=== PATIENT | female | born 2000 | race Caucasian/White ===

== ENCOUNTER 2019-04-07 06:57 | Emergency (ER) | payer SELFPAY | END 2019-04-07 07:10 | disposition left against medical advice (07) | LOC: JD.ED 06:57 | DX: Z53.21 Procedure and treatment not carried out due to patient leaving prior to being seen by health care provider (principal) | CPT/HCPCS: 99282 ==

== ENCOUNTER 2019-04-07 11:04 | Inpatient (IN) | payer BC ==
[2019-04-07] MEDS ORDERED: Ondansetron 4 MG/2 ML SDV IVPUSH ONE (11:09)
[2019-04-07] MEDS ORDERED: Sodium Chloride 0.9% 10 ML Syringe FLUSH PRN (11:09)
[2019-04-07] MEDS ORDERED: Sodium Chloride 0.9% 1,000 ML IV SCH ×2 (11:15→12:30)
[2019-04-07] MEDS ORDERED: Sodium Chloride 0.9% 1,000 ML ONE (11:26)
[2019-04-07] MEDS ORDERED: Potassium Chloride 10 MEQ in Premix Bag 1 BAG IV SCH (12:15)
--- NOTE | 2019-04-07 12:18 | EDM.PDOCBH ---
ED HPI GENERAL MEDICAL PROBLEM - General Chief Complaint: Drug or Alcohol Abuse Stated Complaint: [facility] Time Seen by Provider: 04/07/19 11:09 Source of Information: Reports: Patient, EMS, Family History Limitations: Reports: Altered Mental Status - History of Present Illness INITIAL COMMENTS - FREE TEXT/NARRATIVE: The patient presents by [facility] for an overdose. She is sleepy but she will talk. She admits to taking hydroxyzine, respiridone and clonidine this morning about 5:30am. She has tried to overdose in the past. She has a history of depression. Her mom, nitish and a friend arrived and clarified some of her story. She has overdosed a few times. She was recently hospitalized in [place] for suicidal ideation. She checked herself in. She told a friend she took some meds last night. She would not go to the hospital. She then talked her into it this morning. She dropped her off at the ER. We did not bring her back right away because were were busy. She left and walked to her mother's house where she ingested more pills. She was found unresponsive but when EMS got there she would respond to painful stimuli and she will talk to me. She did not drink any alcohol. She feels nauseated. She did vomit at the house and EMS said there was no pill fragments. Onset: Sudden Duration: Hour(s): Severity: Moderate Improves with: Reports: None Worsens with: Reports: None Associated Symptoms: Reports: Nausea/Vomiting. Denies: Chest Pain, Cough, Fever /Chills, Headaches, Shortness of Breath - Related Data Allergies Allergy/AdvReac Type Severity Reaction Status Date / Time lidocaine Allergy Hallucinati Verified 11/06/17 22:06 ons promethazine HCl Allergy Anaphylactic Verified 11/06/17 22:06 [From Phenergan] Shock Home Meds: Home Meds Sertraline [Zoloft] 200 mg PO DAILY 07/03/15 [History] lamoTRIgine [Lamotrigine] 100 mg PO BEDTIME 07/03/15 [History] . [Unable to Verify Home Med List] 08/05/15 [History] Past Medical History - Past Health History Medical/Surgical History: Denies Medical/Surgical History Cardiovascular History: Reports: Syncope, Other (See Below) Other Cardiovascular History: Othrostatic hypotension Neurological History: Reports: Concussion Psychiatric History: Reports: Depression - Past Surgical History Female Surgical History: Reports: Other (See Below) Musculoskeletal Surgical History: Reports: Other (See Below) Other Musculoskeletal Surgeries/Procedures:: Foot surgery Social & Family History - Family History Family Medical History: Unobtainable : Reports: Diabetic Nephropathy Psychiatric: Reports: Depression - Tobacco Use Smoking Status *Q: Current Every Day Smoker Years of Tobacco use: 5 Packs/Tins Daily: 1 - Caffeine Use Caffeine Use: Reports: Coffee, Energy Drinks, Soda - Recreational Drug Use Recreational Drug Use: Yes Recreational Drug Type: Reports: Marijuana/Hashish - Living Situation & Occupation Living situation: Reports: Single, with Significant Other (Boyfriend) 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 Denies: Abdominal Pain : Reports: No Symptoms Musculoskeletal: Reports: No Symptoms Skin: Reports: No Symptoms ED EXAM, BEHAVIORAL HEALTH - Physical Exam Exam: See Below Exam Limited By: Altered Mental Status General Appearance: Other (Sleepy but she will talk after painfull stimuli) Eye Exam: Bilateral Eye: EOMI, PERRL Ears: Normal External Exam Nose: Normal Inspection Head: Atraumatic Neck: Normal Inspection Respiratory/Chest: No Respiratory Distress, Lungs Clear, Normal Breath Sounds Cardiovascular: Regular Rate, Rhythm, No Edema, No Murmur GI/Abdominal: Soft, Non-Tender, No Organomegaly, No Mass Neurological: No Motor/Sensory Deficits, Other (Sleepy but she will talk when stimulated) EKG INTERPRETATION EKG Date: 04/07/19 Time: 11:09 Rhythm: NSR Rate (Beats/Min): 73 [place]: Normal P-Wave: Present QRS: Normal ST-T: Normal QT: Prolonged EKG Interpretation Comments: Q waves in the inferior leads COURSE, BEHAVIORAL HEALTH COMP - Course Vital Signs: Last Vital Signs Temp 95.6 F 04/07/19 11:10 Pulse 78 04/07/19 11:10 Resp 14 04/07/19 11:10 BP 94/53 L 04/07/19 11:10 Pulse Ox 97 04/07/19 11:10 Orders, Labs, Meds: Active Orders 24 hr Category Date Time Status Cardiac Monitoring [RC] . DIRECTED Care 04/07/19 11:11 Active Peripheral IV Care [RC] . DIRECTED Care 04/07/19 11:11 Active Magnesium Sulfate/D5W [Magnesium Sulfate in D5W 100 Med 04/07/19 12:16 Active Premix] 1 gm Premix Bag 1 bag IV ONETIME Potassium Chloride [KCl 10 MEQ in Water 100 ML] 10 meq Med 04/07/19 12:15 Active Premix Bag 1 bag IV ASDIRECTED Sodium Chloride 0.9% [Normal Saline] 1,000 ml Med 04/07/19 11:15 Active IV .BOLUS Sodium Chloride 0.9% [Normal Saline] 1,000 ml Med 04/07/19 12:30 Active IV ASDIRECTED Sodium Chloride 0.9% [Saline Flush] Med 04/07/19 11:09 Active 10 ml FLUSH ASDIRECTED PRN ED Antiemetic Medication Reflex [OM.PC] Stat Oth 04/07/19 11:11 Ordered Peripheral IV Insertion Adult [OM.PC] Stat Oth 04/07/19 11:09 Ordered Medication Orders Sodium Chloride (Normal Saline) 1,000 mls @ 1,000 mls/hr IV .BOLUS DENISSE Last Admin: 04/07/19 11:18 Dose: 1,000 mls/hr Potassium Chloride 10 meq/ (Premix) 100 mls @ 100 mls/hr IV ASDIRECTED DENISSE Magnesium Sulfate/Dextrose 1 (gm/ Premix) 100 mls @ 100 mls/hr IV ONETIME ONE Stop: 04/07/19 13:15 Sodium Chloride (Normal Saline) 1,000 mls @ 150 mls/hr IV ASDIRECTED DENISSE Sodium Chloride (Saline Flush) 10 ml FLUSH ASDIRECTED PRN PRN Reason: Keep Vein Open Last Admin: 04/07/19 11:18 Dose: 10 ml Laboratory Tests 04/07/19 04/07/19 04/07/19 Range/Units 11:11 11:11 11:11 WBC 9.05 (3.98-10.04) K/mm3 RBC 4.80 (3.98-5.22) M/mm3 Hgb 13.4 (11.2-15.7) gm/dl Hct 40.9 (34.1-44.9) % MCV 85.2 D (79.4-94.8) fl MCH 27.9 (25.6-32.2) pg MCHC 32.8 (32.2-35.5) g/dl RDW Std Deviation 40.1 (36.4-46.3) fL Plt Count 272 (182-369) K/mm3 MPV 9.4 (9.4-12.3) fl Neut % (Auto) 60.8 (34.0-71.1) % Lymph % (Auto) 29.1 (19.3-51.7) % [place] % (Auto) 8.2 (4.7-12.5) % Eos % (Auto) 1.2 (0.7-5.8) Baso % (Auto) 0.3 (0.1-1.2) % Neut # (Auto) 5.50 (1.56-6.13) K/mm3 Lymph # (Auto) 2.63 (1.18-3.74) K/mm3 [place] # (Auto) 0.74 H (0.24-0.36) K/mm3 Eos # (Auto) 0.11 (0.04-0.36) K/mm3 Baso # (Auto) 0.03 (0.01-0.08) K/mm3 Sodium 139 (136-145) mEq/L Potassium 2.6 L (3.5-5.1) mEq/L Chloride 105 (98-107) mEq/L Carbon Dioxide 23 (21-32) mEq/L Anion Gap 13.6 (5-15) BUN 8 (7-18) mg/dL Creatinine 0.7 (0.55-1.02) mg/dL Est Cr Clr Drug Dosing TNP Estimated GFR (MDRD) > 60 (>60) mL/min BUN/Creatinine Ratio 11.4 L (14-18) Glucose 152 H (74-106) mg/dL Calcium 8.1 L (8.5-10.1) mg/dL Magnesium 1.5 L (1.8-2.4) mg/dl Total Bilirubin 0.4 (0.2-1.0) mg/dL AST 14 L (15-37) U/L ALT 25 (14-59) U/L Alkaline Phosphatase 55 (46-116) U/L CK-MB (CK-2) (0-3.6) ng/ml Troponin I < 0.017 (0.00-0.056) ng/mL Total Protein 6.6 (6.4-8.2) g/dl Albumin 3.5 (3.4-5.0) g/dl Globulin 3.1 gm/dL Albumin/Globulin Ratio 1.1 (1-2) HCG, Qual Negative (NEGATIVE) Salicylates (2.8-20) mg/dL Urine Opiates Screen (TPWDMO=544) Ur Buprenorphine Scrn (CUTOFF=10) Ur Oxycodone Screen (JFM2ZI=855) Urine Methadone Screen (MRNJOW=738) Ur Propoxyphene Screen (UAWMFU=105) Acetaminophen (10-30) ug/mL Ur Barbiturates Screen (EKAYZU=494) Ur Tricyclics Screen (ACNZFF=756) Ur Phencyclidine Scrn (CUTOFF=25) Ur Amphetamine Screen (WALJKS=777) U Methamphetamines Scrn (EQSPZR=355) U Benzodiazepines Scrn (HLHRNJ=751) U Cocaine Metab Screen (GDYLBH=069) U Marijuana (THC) Screen (CUTOFF=50) Ethyl Alcohol 0.00 (0.00) gm% 04/07/19 04/07/19 04/07/19 Range/Units 11:11 11:11 11:11 WBC (3.98-10.04) K/mm3 RBC (3.98-5.22) M/mm3 Hgb (11.2-15.7) gm/dl Hct (34.1-44.9) % MCV (79.4-94.8) fl MCH (25.6-32.2) pg MCHC (32.2-35.5) g/dl RDW Std Deviation (36.4-46.3) fL Plt Count (182-369) K/mm3 MPV (9.4-12.3) fl Neut % (Auto) (34.0-71.1) % Lymph % (Auto) (19.3-51.7) % [place] % (Auto) (4.7-12.5) % Eos % (Auto) (0.7-5.8) Baso % (Auto) (0.1-1.2) % Neut # (Auto) (1.56-6.13) K/mm3 Lymph # (Auto) (1.18-3.74) K/mm3 [place] # (Auto) (0.24-0.36) K/mm3 Eos # (Auto) (0.04-0.36) K/mm3 Baso # (Auto) (0.01-0.08) K/mm3 Sodium (136-145) mEq/L Potassium (3.5-5.1) mEq/L Chloride (98-107) mEq/L Carbon Dioxide (21-32) mEq/L Anion Gap (5-15) BUN (7-18) mg/dL Creatinine (0.55-1.02) mg/dL Est Cr Clr Drug Dosing Estimated GFR (MDRD) (>60) mL/min BUN/Creatinine Ratio (14-18) Glucose (74-106) mg/dL Calcium (8.5-10.1) mg/dL Magnesium (1.8-2.4) mg/dl Total Bilirubin (0.2-1.0) mg/dL AST (15-37) U/L ALT (14-59) U/L Alkaline Phosphatase (46-116) U/L CK-MB (CK-2) 1.9 (0-3.6) ng/ml Troponin I (0.00-0.056) ng/mL Total Protein (6.4-8.2) g/dl Albumin (3.4-5.0) g/dl Globulin gm/dL Albumin/Globulin Ratio (1-2) HCG, Qual (NEGATIVE) Salicylates 1.4 L (2.8-20) mg/dL Urine Opiates Screen (VPTOEZ=293) Ur Buprenorphine Scrn (CUTOFF=10) Ur Oxycodone Screen (FZG0UG=446) Urine Methadone Screen (CLYCWM=116) Ur Propoxyphene Screen (OUYJIS=347) Acetaminophen 0 L (10-30) ug/mL Ur Barbiturates Screen (AVDWLB=217) Ur Tricyclics Screen (RSPFJM=608) Ur Phencyclidine Scrn (CUTOFF=25) Ur Amphetamine Screen (HAXCSR=776) U Methamphetamines Scrn (PBKDDJ=050) U Benzodiazepines Scrn (EWPEJD=181) U Cocaine Metab Screen (RRTXZN=160) U Marijuana (THC) Screen (CUTOFF=50) Ethyl Alcohol (0.00) gm% 04/07/19 Range/Units 11:38 WBC (3.98-10.04) K/mm3 RBC (3.98-5.22) M/mm3 Hgb (11.2-15.7) gm/dl Hct (34.1-44.9) % MCV (79.4-94.8) fl MCH (25.6-32.2) pg MCHC (32.2-35.5) g/dl RDW Std Deviation (36.4-46.3) fL Plt Count (182-369) K/mm3 MPV (9.4-12.3) fl Neut % (Auto) (34.0-71.1) % Lymph % (Auto) (19.3-51.7) % [place] % (Auto) (4.7-12.5) % Eos % (Auto) (0.7-5.8) Baso % (Auto) (0.1-1.2) % Neut # (Auto) (1.56-6.13) K/mm3 Lymph # (Auto) (1.18-3.74) K/mm3 [place] # (Auto) (0.24-0.36) K/mm3 Eos # (Auto) (0.04-0.36) K/mm3 Baso # (Auto) (0.01-0.08) K/mm3 Sodium (136-145) mEq/L Potassium (3.5-5.1) mEq/L Chloride (98-107) mEq/L Carbon Dioxide (21-32) mEq/L Anion Gap (5-15) BUN (7-18) mg/dL Creatinine (0.55-1.02) mg/dL Est Cr Clr Drug Dosing Estimated GFR (MDRD) (>60) mL/min BUN/Creatinine Ratio (14-18) Glucose (74-106) mg/dL Calcium (8.5-10.1) mg/dL Magnesium (1.8-2.4) mg/dl Total Bilirubin (0.2-1.0) mg/dL AST (15-37) U/L ALT (14-59) U/L Alkaline Phosphatase (46-116) U/L CK-MB (CK-2) (0-3.6) ng/ml Troponin I (0.00-0.056) ng/mL Total Protein (6.4-8.2) g/dl Albumin (3.4-5.0) g/dl Globulin gm/dL Albumin/Globulin Ratio (1-2) HCG, Qual (NEGATIVE) Salicylates (2.8-20) mg/dL Urine Opiates Screen Negative (DYDIIR=955) Ur Buprenorphine Scrn Negative (CUTOFF=10) Ur Oxycodone Screen Negative (QDD7FC=607) Urine Methadone Screen Negative (TEQVMT=245) Ur Propoxyphene Screen Negative (RHKZJG=248) Acetaminophen (10-30) ug/mL Ur Barbiturates Screen Negative (NADMNB=391) Ur Tricyclics Screen Negative (FOSGGC=536) Ur Phencyclidine Scrn Negative (CUTOFF=25) Ur Amphetamine Screen Negative (MEVQZQ=031) U Methamphetamines Scrn Negative (MFVXDI=371) U Benzodiazepines Scrn Negative (STAOJF=939) U Cocaine Metab Screen Negative (JPFBZB=141) U Marijuana (THC) Screen Presumptive positive H (CUTOFF=50) Ethyl Alcohol (0.00) gm% Medications Generic Name Dose Route Start Last Admin Trade Name Freq PRN Reason Stop Dose Admin Sodium Chloride 1,000 mls @ 1,000 mls/hr 04/07/19 11:15 04/07/19 11:18 Normal Saline IV 1,000 mls/hr .BOLUS DENISSE Administration Potassium Chloride 10 meq/ 100 mls @ 100 mls/hr 04/07/19 12:15 Premix IV ASDIRECTED DENISSE Magnesium Sulfate/Dextrose 1 100 mls @ 100 mls/hr 04/07/19 12:16 gm/ Premix IV 04/07/19 13:15 ONETIME ONE Sodium Chloride 1,000 mls @ 150 mls/hr 04/07/19 12:30 Normal Saline IV ASDIRECTED DENISSE Sodium Chloride 10 ml 04/07/19 11:09 04/07/19 11:18 Saline Flush FLUSH 10 ml ASDIRECTED PRN Administration Keep Vein Open Discontinued Medications Generic Name Dose Route Start Last Admin Trade Name Freq PRN Reason Stop Dose Admin Sodium Chloride Confirm 04/07/19 11:26 Normal Saline Administered 04/07/19 11:27 Dose 1,000 mls @ as directed .ROUTE .STK-MED ONE Ondansetron HCl 4 mg 04/07/19 11:09 04/07/19 11:18 Zofran IVPUSH 04/07/19 11:10 4 mg ONETIME ONE Administration Re-Assessment/Re-Exam: I ordered an IV NS 1L bolus, labs, UDS and an EKG. Her EKG shows a NSR with borderline QT prolongation. Her CBC looks good. Her K is low at 2.6. Her glucose was elevated at 152. Her troponin is negative. Her HCG is negative. Her UDS is positive for marijuana. Her ETOH is 0. Her salicylates are negative. Her acetaminophen is negative. Her BP was low so she did get a NS bolus. That did help but later her BP dropped again so I ordered LR 1L bolus. I did call poison control and they recommended admission and keeping her BP up with fluids and watch for QRS prolongation. I called Dr Resendiz and she agreed to the admission. Departure - Departure Time of Disposition: 12:40 Disposition: Admitted As Inpatient 65 Condition: Serious Clinical Impression: Suicidal ideation, Hypokalemia, Hypomagnesemia Drug overdose Qualifiers: Encounter type: initial encounter Injury intent: intentional self-harm Qualified Code(s): T50.902A - Poisoning by unspecified drugs, medicaments and biological substances, intentional self-harm, initial encounter Depression Qualifiers: Depression Type: other depression Qualified Code(s): F32.89 - Other specified depressive episodes Hypotension Qualifiers: Hypotension type: other hypotension type Qualified Code(s): I95.89 - Other hypotension - Discharge Information Referrals: PCP,None [Primary Care Provider] - Sepsis Event Note - Evaluation Sepsis Screening Result: No Definite Risk - Focused Exam Vital Signs: Vital Signs Temp Pulse Resp BP Pulse Ox 04/07/19 11:10 95.6 F 78 14 94/53 L 97 Date Exam was Performed: 04/07/19 Time Exam was Performed: 12:29 - My Orders Last 24 Hours: My Active Orders 04/07/19 11:09 Sodium Chloride 0.9% [Saline Flush] 10 ml FLUSH ASDIRECTED PRN Peripheral IV Insertion Adult [OM.PC] Stat 04/07/19 11:11 Cardiac Monitoring [RC] . DIRECTED Peripheral IV Care [RC] . DIRECTED ED Antiemetic Medication Reflex [OM.PC] Stat 04/07/19 11:15 Sodium Chloride 0.9% [Normal Saline] 1,000 ml IV .BOLUS 04/07/19 12:15 Potassium Chloride [KCl 10 MEQ in Water 100 ML] 10 meq Premix Bag 1 bag IV ASDIRECTED 04/07/19 12:16 Magnesium Sulfate/D5W [Magnesium Sulfate in D5W 100 Premix] 1 gm Premix Bag 1 bag IV ONETIME 04/07/19 12:30 Sodium Chloride 0.9% [Normal Saline] 1,000 ml IV ASDIRECTED - Assessment/Plan Last 24 Hours: My Active Orders 04/07/19 11:09 Sodium Chloride 0.9% [Saline Flush] 10 ml FLUSH ASDIRECTED PRN Peripheral IV Insertion Adult [OM.PC] Stat 04/07/19 11:11 Cardiac Monitoring [RC] . DIRECTED Peripheral IV Care [RC] . DIRECTED ED Antiemetic Medication Reflex [OM.PC] Stat 04/07/19 11:15 Sodium Chloride 0.9% [Normal Saline] 1,000 ml IV .BOLUS 04/07/19 12:15 Potassium Chloride [KCl 10 MEQ in Water 100 ML] 10 meq Premix Bag 1 bag IV ASDIRECTED 04/07/19 12:16 Magnesium Sulfate/D5W [Magnesium Sulfate in D5W 100 Premix] 1 gm Premix Bag 1 bag IV ONETIME 04/07/19 12:30 Sodium Chloride 0.9% [Normal Saline] 1,000 ml IV ASDIRECTED
[2019-04-07] MEDS ORDERED: Lactated Ringers 1,000 ML IV ONE (12:36)
[2019-04-07] MEDS ORDERED: Lactated Ringers 1,000 ML IV SCH (12:45)
[2019-04-07] MEDS ORDERED: LORazepam 2 MG/ML SDV IVPUSH PRN (12:59)
--- NOTE | 2019-04-07 13:22 | PCM.HP.2 ---
H&P History of Present Illness - General Date of Service: 04/07/19 Admit Problem/Dx: Admission Diagnosis/Problem Admission Diagnosis/Problem Drug overdose - suicide - History of Present Illness Initial Comments - Free Text/Narative: This is a 18 year old female with past medical history of depression and anxiety who comes to the ED brought by family members for a drug overdose. As per patient's family last night she took Risperdal, clonidine and hydroxyzine and afterwards told her fiancee she had taken the pills, she did not voice the reason why she took them. At that time they tried to convince patient to come in to be evaluated but she refused, instead she went out for a walk and came back a couple of hours later and went to bed. She came in to the ED this morning to be evaluated but left prior to being seen and [facility] and wound up in her apartment. Once she was there she walked upstairs and her fiancee heard her fall on the floor after which EMS was called and she was brought in to the ED. - Related Data Allergies/Adverse Reactions: Allergies Allergy/AdvReac Type Severity Reaction Status Date / Time lidocaine Allergy Hallucinati Verified 11/06/17 22:06 ons promethazine HCl Allergy Anaphylactic Verified 11/06/17 22:06 [From Phenergan] Shock Home Medications: Home Meds Sertraline [Zoloft] 200 mg PO DAILY 07/03/15 [History] lamoTRIgine [Lamotrigine] 100 mg PO BEDTIME 07/03/15 [History] . [Unable to Verify Home Med List] 08/05/15 [History] Past Medical History - Past Health History Medical/Surgical History: Denies Medical/Surgical History Cardiovascular History: Reports: Syncope, Other (See Below) Other Cardiovascular History: Othrostatic hypotension Neurological History: Reports: Concussion Psychiatric History: Reports: Depression - Past Surgical History Female Surgical History: Reports: Other (See Below) Musculoskeletal Surgical History: Reports: Other (See Below) Other Musculoskeletal Surgeries/Procedures:: Foot surgery Social & Family History - Family History Family Medical History: Unobtainable : Reports: Diabetic Nephropathy Psychiatric: Reports: Depression - Tobacco Use Smoking Status *Q: Current Every Day Smoker Years of Tobacco use: 5 Packs/Tins Daily: 1 - Caffeine Use Caffeine Use: Reports: Coffee, Energy Drinks, Soda - Recreational Drug Use Recreational Drug Use: Yes Recreational Drug Type: Reports: Marijuana/Hashish - Living Situation & Occupation Living situation: Reports: Single, with Significant Other (Boyfriend) 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[employer]) H&P Review of Systems - Review of Systems: Review Of Systems: Unable To Obtain Reason Not Obtained: Patient is obtunded Exam - Exam Exam: See Below - Vital Signs Vital Signs: Last Vital Signs Temp 95.6 F 04/07/19 11:10 Pulse 78 04/07/19 11:10 Resp 14 04/07/19 11:10 BP 94/53 L 04/07/19 11:10 Pulse Ox 97 04/07/19 11:10 - Exam Quality Assessment: Supplemental Oxygen General: Obtunded HEENT: EACs Clear, EOMI, Hearing Intact, Mucosa Moist & [place], Other ( erythematous conjunctiva) Neck: Supple, Trachea Midline, +2 Carotid Pulse wo Bruit Lungs: Clear to Auscultation, Decreased Breath Sounds. No: Crackles, Rales, Rhonchi, Wheezing Cardiovascular: Regular Rate, Regular Rhythm. No: Systolic Murmur, Diastolic Murmur, Rubs, Gallop/S3, Gallop/S4 GI/Abdominal Exam: Normal Bowel Sounds, Soft, Non-Tender, No Organomegaly, No Distention Extremities: Normal Inspection, Normal Range of Motion, Non-Tender, No Pedal Edema, Normal Capillary Refill Skin: Warm - Patient Data Result Diagrams: 04/07/19 11:11 04/07/19 11:11 Sepsis Event Note - Evaluation Sepsis Screening Result: No Definite Risk - Focused Exam Vital Signs: Vital Signs Temp Pulse Resp BP Pulse Ox 04/07/19 11:10 95.6 F 78 14 94/53 L 97 Date Exam was Performed: 04/07/19 Time Exam was Performed: 13:09 - Problem List (1) Major depressive disorder SNOMED Code(s): 685014769 ICD Code: F32.9 - MAJOR DEPRESSIVE DISORDER, SINGLE EPISODE, UNSPECIFIED Status: Acute Current Visit: Yes (2) Anxiety SNOMED Code(s): 65810399 ICD Code: F41.9 - ANXIETY DISORDER, UNSPECIFIED Status: Acute Current Visit: Yes (3) Drug overdose SNOMED Code(s): 02771460 ICD Code: T50.901A - POISONING BY UNSP DRUG/MEDS/BIOL SUBST, ACCIDENTAL, INIT Status: Acute Current Visit: Yes Qualifiers: Encounter type: initial encounter Injury intent: intentional self-harm Qualified Code(s): T50.902A - Poisoning by unspecified drugs, medicaments and biological substances, intentional self-harm, initial encounter (4) Hypokalemia SNOMED Code(s): 69759695 ICD Code: E87.6 - HYPOKALEMIA Status: Acute Current Visit: Yes (5) Hypomagnesemia SNOMED Code(s): 233635055 ICD Code: E83.42 - HYPOMAGNESEMIA Status: Acute Current Visit: Yes (6) Hypotension SNOMED Code(s): 45908167 ICD Code: I95.9 - HYPOTENSION, UNSPECIFIED Status: Acute Current Visit: Yes Qualifiers: Hypotension type: other hypotension type Qualified Code(s): I95.89 - Other hypotension (7) Suicidal ideation SNOMED Code(s): 1291921 ICD Code: R45.851 - SUICIDAL IDEATIONS Status: Acute Current Visit: Yes Problem List Initiated/Reviewed/Updated: Yes Assessment/Plan Comment:: Drug overdose Hypotension Previous suicide attempts Major depressive disorder Anxiety Hypomagnesemia/Hypokalemia Suicidal ideation With Risperidone, Clonazepam and Hydroxyzine Poison control case # Hypotension in the ED, requiring multiple fluid boluses 4 previous suicide attempts 5 prior psychiatric unit admissions, including 8 month admission to [facility] in 2016, discharged 02/2016 Recent self admission to [facility] for suicidal ideation, 1 month ago Apparent trigger was a miscarriage 2 months ago PLAN - LR at 250ml/hr - Close monitorization of urine output - Continues cardiac monitoring - If refractory then will place central line and start vasopressors - Follow up with poison control Alcohol abuse disorder Marijuana abuse disorder Tobacco user Daily drinker, 1-2 cocktails Last drink was Wed-Jeannie of last week Smokes 1ppd since age 14 PLAN - CIWA protocol - Thiamine daily - Banana Bag - Nicotine patch - Smoking cessation counseling PROPHYLAXIS DVT- Compression stockings GI- not indicated CODE STATUS: FULL CODE DISPOSITION: Patient will be admitted to the ICU for close monitorization. 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 - Mortality Measure Prognosis:: Good
[2019-04-07 13:27] LABS: HEMOGLOBIN A1C 5.1 % (4.50-6.20)
[2019-04-07] MEDS: Lactated Ringers 1,000 ML IV SCH ×3 (14:10→21:59)
[2019-04-07] MEDS ORDERED: Magnesium Sulfate/Water 4 GM in Premix Bag 1 BAG IV ONE (18:50)
[2019-04-07] MEDS: Potassium Chloride 10 MEQ in Premix Bag 1 BAG IV SCH ×4 (19:01→21:59)
[2019-04-08] MEDS ORDERED: Sodium Chloride 0.9% 10 ML Syringe FLUSH PRN (06:36)
[2019-04-08] MEDS ORDERED: FLU Vacc QS2019-20(6MOS+)/PF 60 MCG/0.5 ML SYRINGE IM ONE (07:30)
[2019-04-08] MEDS ORDERED: Nicotine 21 MG/24 Hr Patch TRDERM SCH (09:00)
[2019-04-08] MEDS ORDERED: Thiamine 100 MG Tab PO SCH (11:00)
[2019-04-08 12:31] VITALS: BP 127/51; PULSE 84
--- NOTE | 2019-04-08 14:27 | PCM.DCSUM1 ---
Discharge Summary - Hospital Course HPI Initial Comments: This is a 18 year old female with past medical history of depression and anxiety who comes to the ED brought by family members for a drug overdose. As per patient's family last night she took Risperdal, clonidine and hydroxyzine and afterwards told her fiancee she had taken the pills, she did not voice the reason why she took them. At that time they tried to convince patient to come in to be evaluated but she refused, instead she went out for a walk and came back a couple of hours later and went to bed. She came in to the ED this morning to be evaluated but left prior to being seen and walked to [facility] and wound up in her apartment. Once she was there she walked upstairs and her fiancee heard her fall on the floor after which EMS was called and she was brought in to the ED. Diagnosis: Stroke: No - Discharge Data Discharge Date: 04/08/19 Discharge Disposition: DC/Tfer to Psych Hosp/Unit [address] Condition: Good - Referral to Home Health Primary Care Physician: PCP None - Discharge Diagnosis/Problem(s) (1) Major depressive disorder SNOMED Code(s): 848725274 ICD Code: F32.9 - MAJOR DEPRESSIVE DISORDER, SINGLE EPISODE, UNSPECIFIED Status: Acute Current Visit: Yes (2) Anxiety SNOMED Code(s): 11180612 ICD Code: F41.9 - ANXIETY DISORDER, UNSPECIFIED Status: Acute Current Visit: Yes (3) Drug overdose SNOMED Code(s): 02120810 ICD Code: T50.901A - POISONING BY UNSP DRUG/MEDS/BIOL SUBST, ACCIDENTAL, INIT Status: Acute Current Visit: Yes Qualifiers: Encounter type: initial encounter Injury intent: intentional self-harm Qualified Code(s): T50.902A - Poisoning by unspecified drugs, medicaments and biological substances, intentional self-harm, initial encounter (4) Hypokalemia SNOMED Code(s): 72560957 ICD Code: E87.6 - HYPOKALEMIA Status: Acute Current Visit: Yes (5) Hypomagnesemia SNOMED Code(s): 389339481 ICD Code: E83.42 - HYPOMAGNESEMIA Status: Acute Current Visit: Yes (6) Hypotension SNOMED Code(s): 73914114 ICD Code: I95.9 - HYPOTENSION, UNSPECIFIED Status: Acute Current Visit: Yes Qualifiers: Hypotension type: other hypotension type Qualified Code(s): I95.89 - Other hypotension (7) Suicidal ideation SNOMED Code(s): 8943179 ICD Code: R45.851 - SUICIDAL IDEATIONS Status: Acute Current Visit: Yes - Patient Summary/Data Consults: Consultations 04/07/19 12:59 Consult to Case Management/District Manager [employer] Service [CONS] Routine 04/07/19 17:21 Consult to Physician [CONS] Routine Hospital Course: Patient came in to the ED brought by EMS for drug overdose Once in ED was found to be hypotensive despite multiple IVF bolus Poison control consulted and recommended overnight monitorization for intoxication Medically stable Hypotension resolved on 04/07 Medically cleared Case discussed with Dr. Lane in [place] Patient will be transferred to inpatient psychiatry - Patient Instructions Diet: Usual Diet as Tolerated Activity: As Tolerated - Discharge Plan *PRESCRIPTION DRUG MONITORING PROGRAM REVIEWED*: No *COPY OF PRESCRIPTION DRUG MONITORING REPORT IN PATIENT ANA ROSA: No Home Medications: Home Meds . [Unable to Verify Home Med List] 08/05/15 [History] Patient Handouts: Steps to Quit Smoking Referrals: PCP,None [Primary Care Provider] - - Discharge Summary/Plan Comment DC Time >30 min.: Yes (120min, coordinating transfer to [facility] in [place]) - General Info Date of Service: 04/08/19 - Review of Systems General: Denies: Fever, Weakness, Fatigue, Malaise, Chills HEENT: Denies: Sinus Congestion, Sore Throat, Rhinitis, Visual Changes Pulmonary: Denies: Shortness of Breath, Pleuritic Chest Pain, Cough, Sputum, Hemoptysis, Wheezing Cardiovascular: Denies: Chest Pain, Palpitations, Dyspnea on Exertion, Orthopnea , PND, Edema, Lightheadedness Gastrointestinal: Denies: Abdominal Pain, Constipation, Decreased Appetite, Diarrhea, Difficulty Swallowing, Nausea, Vomiting Genitourinary: Denies: Dysuria, Frequency, Burning, Pain Musculoskeletal: Denies: Neck Pain, Shoulder Pain, Arm Pain, Hand Pain, Back Pain, Leg Pain, Foot Pain, Joint Pain, Joint Swelling Skin: Denies: Cyanosis, Jaundice, Mottled Neurological: Denies: Confusion, Dizziness, Headache Psychiatric: Reports: Depression, Mood Lability, Anxiety, Agitation. Denies: Confusion - Patient Data Vitals - Most Recent: Last Vital Signs Temp 98.0 F 04/08/19 12:00 Pulse 84 04/08/19 12:00 Resp 16 04/08/19 12:00 BP 127/51 L 04/08/19 12:00 Pulse Ox 98 04/08/19 12:00 Weight - Most Recent: 87.725 kg - Exam General: Reports: Alert, Oriented HEENT: Reports: Pupils Equal, Pupils Reactive, EOMI, Mucous Membr. Moist/[place] Neck: Reports: Supple, Trachea Midline, No JVD, No Thyromegaly, +2 Carotid Pulse wo Bruit. Denies: Lymphadenopathy Lungs: Reports: Clear to Auscultation, Normal Respiratory Effort. Denies: Crackles, Rales, Rhonchi, Rub, Stridor, Wheezing Cardiovascular: Reports: Regular Rate, Regular Rhythm. Denies: Murmurs, Gallops , Rubs GI/Abdominal Exam: Normal Bowel Sounds, Soft, Non-Tender, No Organomegaly, No Distention Back Exam: Reports: Normal Inspection, Full Range of Motion Extremities: Normal Inspection, Normal Range of Motion, Non-Tender, No Pedal Edema, Normal Capillary Refill Neurological: Reports: No New Focal Deficit
--- NOTE | 2019-04-09 15:19 | CONS ---
CONSULTING PHYSICIAN: Raul Zaldivar MD DATE OF CONSULTATION: 04/08/2019 Site where the services are provided is [facility] in [place], [place]. Site where the services are provided from office is in [facility]. Length of service for this 60-minute inpatient telemedicine event is . IDENTIFICATION: The patient is a 18-year-old female who is admitted to the inpatient MICU at [facility] in [place], [place]. She is seen for psychiatric consultation per the request of staff attending, Dr. Resendiz, and her treatment team. CHIEF COMPLAINT: "I was like impulsive and I took a bunch of pills." HISTORY OF PRESENT ILLNESS: The patient is a 18-year-old female who was not feeling good after a fight with her boyfriend and then overdosed on a combination of Benadryl, Klonopin, and Risperdal. She states she has been under a lot of stress and she had also been drinking some wine coolers and some mixed drinks. She states that she had generally been feeling good, but she did have a miscarriage a few months ago and "that has been really hard" on her. She also states that work has been going well. The patient is feeling depressed, "but not all the time." She definitely endorses mood swings, a lot of anxiety, and racing thoughts or ruminations. At this point in time, she is denying that she is suicidal or homicidal. She denies any psychotic, delusional, or paranoid symptoms, but she does again state that she has a lot of depression, anxiety, mood swings and she does feel impulsive at times. MEDICATIONS PRIOR TO ADMISSION: 1. Zoloft. 2. Risperdal. 3. Clonidine. 4. Lamotrigine. ALLERGIES: The patient states she is allergic to Phenergan, which causes pulmonary arrest. PAST MEDICAL HISTORY: The patient is denying. REVIEW OF SYSTEMS: Negative for any acute difficulties or complications currently with her GI, , pulmonary, cardiac, endocrine, blood, immune, skin, musculoskeletal, and nervous systems. FAMILY PSYCHIATRIC AND CD HISTORY: The patient reports sisters have a history of mental health issues. PAST PSYCHIATRIC AND CD HISTORY: The patient reports 2 psychiatric hospitalizations in the past and one chemical dependency treatment in the past. She is a 7-ggxk-vrt-day smoker for the past 4 years. She does report about 5 suicide attempts by overdose in the past. Also reports a history of self-injurious behaviors in her early teens. She does report some restricting behaviors, but denies any bulimic behaviors again when she was younger. She states that she is using marijuana on the orders of "2 blunts to few bolts" a day. She is currently prescribed Risperdal, clonidine, and Lamictal. She sees Dr. Bacon out of [place] for her psychiatric outpatient care. SOCIAL HISTORY: The patient was born in [place], [place]; raised in [place], [place]; [place], [place]; [place], [place]. She is the 4th of 5 siblings having 3 sisters and 1 brother. The patient's parents when the patient was 6 years of age. She stayed with her mother after divorce. Father worked at [employer]. Mother worked at [employer]. The patient's highest level of education is a high school diploma. 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 She has never been . Her fiance works in construction, and she reports 1 miscarriage "a few months back" and notes that she has "been coming through, but it has been hard." The patient denies any prior service or current legal difficulties. She is agnostic, but was raised Adventist. She enjoys playing music, playing the piano, guitar, and ukulele. MENTAL STATUS EXAMINATION: The patient is a 18-year-old soft-spoken white female in no apparent distress. Speech is of regular rate and rhythm. The patient is cognitively oriented. Psychomotor activity is within normal limits. There are no abnormal motor movements or tics observed. Gait is steady. Station is normal. Mood is depressed and anxious. Affect is consistent with stated mood, restricted, but cooperative overall for the purposes of the inpatient consult. The patient is denying any suicidal ideation at this point in time. There is no homicidal ideation. There is no behavioral or stated evidence of acute psychotic, delusional, or paranoid symptoms. Thought processes are significant for some racing thoughts or ruminations. However, there are no acute manic symptoms or loose associations evident. Judgment and insight do appear impaired at this point in time. Motivation for help appears poor to fair. VITALS: 107/63, 77, 16, 98 degrees. IMPRESSION: [place] I: 1. Bipolar affective disease, mixed type, F31.60. 2. Anxiety disorder, not otherwise specified, F41.9. 3. Cannabis dependence, F12.20. 4. Rule out attention deficit hyperactivity disorder. 5. Rule out attention deficit hyperactivity disorder. 6. Rule out major depressive disorder. [place]il[place] II: None. Shil[place] III: No known active problem, except for medical complications from overdose. [place] IV: Severe. [place]il[place] V: 55-60. PLAN: 1. Sobriety. 2. Recommend the patient be transferred to inpatient Psychiatry when medically stable for further psychiatric care and stabilization and medication review. 3. Recommend that social Work or inpatient psychiatric team when patient is transferred. Also, explore need for CD treatment options given the patient's daily cannabis use at this point in time. 4. Patient attempts to leave AMA. Would place hold on the patient for the purposes of transferring to inpatient psychiatry for again further psychiatric stabilization and care. 5. We will continue follow up with the patient on an as-needed basis while she remains on the inpatient MICU. 6. We will follow up with the patient sooner if there are any complications in the interim. 7. Would recommend continuing one-to-one with the patient while she remains on MICU. 8. Crisis plan is in place. CLAUDIA /[id number]
== END 2019-04-08 15:15 | DRG 817 ==
LOC: JD.ED 11:04 → JD.ICU 13:00
PROVIDERS: ADMIT Internal Medicine; ATTEND Internal Medicine
DX: T43.592A Poisoning by other antipsychotics and neuroleptics, intentional self-harm, initial encounter (principal); F31.60 Bipolar disorder, current episode mixed, unspecified; F41.9 Anxiety disorder, unspecified; F12.20 Cannabis dependence, uncomplicated; E87.6 Hypokalemia; E83.42 Hypomagnesemia; I95.89 Other hypotension; F17.210 Nicotine dependence, cigarettes, uncomplicated; F10.10 Alcohol abuse, uncomplicated; Z88.8 Allergy status to other drugs, medicaments and biological substances; Z79.899 Other long term (current) drug therapy
CPT/HCPCS: 36415; 51702; 80053; 80306; 82553; 83036; 83735; 84100; 84484; 84703; 85025; 85027; 93005; 96361; 96365; 96368; 96375; 99285-25; A9270-GY; G0480; J2405; J3475; J3480; J7030; J7120

== ENCOUNTER 2020-04-17 01:59 | Emergency (ER) | payer SELFPAY ==
[2020-04-17 02:19] VITALS: BP 130/78; PULSE 104
[2020-04-17] MEDS ORDERED: Ketorolac 30 MG/ML SDV IVPUSH STA (02:43)
[2020-04-17] MEDS ORDERED: LORazepam 2 MG/ML SDV IVPUSH STA (02:43)
[2020-04-17] MEDS ORDERED: Sodium Chloride 0.9% 1,000 ML IV SCH (02:45)
--- NOTE | 2020-04-17 02:46 | EDM.PDOCBH ---
ED HPI GENERAL MEDICAL PROBLEM - General Chief Complaint: Behavioral/Psych Stated Complaint: ANXIETY/HAVING PROBLEMS COPING Time Seen by Provider: 04/17/20 02:11 Source of Information: Reports: Patient History Limitations: Reports: No Limitations - History of Present Illness INITIAL COMMENTS - FREE TEXT/NARRATIVE: Ms. Zafar is a very pleasant 19-year-old woman with a past psychiatric history that includes depression, anxiety, borderline personality disorder, and an eating disorder, all untreated since approximately May 2019, who now presents the ED with feelings of anxiety and difficulty focusing since approximately 2016. She states that she cries often and feels paranoid. She expressly denies feeling suicidal or homicidal, and states that she has not attempted to harm herself. The patient states that she attempted suicide in March 2019, and was psychiatrically hospitalized at [facility]. She was treated with clonazepam, Abilify, and lamotrigine. She followed up at [facility] in April 2019, and was given an extension of her prescriptions, but discontinued them in May 2019 for financial reasons. She has not returned to [facility] since. The patient also reports having a bad headache tonight. She states that she gets headaches frequently, particularly when her mind is racing, and that this headache is essentially the same as those, except worse in severity. The patient acknowledges smoking marijuana daily. She also drinks alcohol on occasion, and drinks to excess on occasion, and she acknowledges that she was drinking tonight, although she states not excessively. Here in the ED, the patient is found to be mildly tachycardic at 104 bpm, otherwise, she is hemodynamically stable, afebrile, saturating 97% on room air. The patient states that she gets headaches and nausea often, otherwise, the patient denies having a recent fever, chills, sore throat, ear pain, nasal or sinus congestion, cough, dyspnea, chest pain, palpitations, vomiting, constipation, diarrhea, abdominal pain, urinary symptoms, recent weight gain or weight loss, recent bloody bowel movements or black bowel movements, recent joint aches, or rashes. The patient does not have a PCP. Her Psychiatrist is Dr. Mary Sahu. She has not received an influenza vaccine this season, and declined an offer to receive one in the ED. Headache Pain Score (Numeric/FACES): 8 - Related Data Allergies Allergy/AdvReac Type Severity Reaction Status Date / Time promethazine HCl Allergy Anaphylactic Verified 04/17/20 02:19 [From Phenergan] Shock lidocaine AdvReac Hallucinati Verified 04/17/20 02:19 ons Home Meds: Home Meds . 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: Reports: Spontaneous Psychiatric History: Reports: Anxiety, Depression, Eating Disorders, Psych Hospitalization(s), Suicide Attempt, Other (See Below) (Borderline personality disorder) - Past Surgical History Musculoskeletal Surgical History: Reports: Other (See Below) (Right ankle surgery) Social & Family History - Tobacco Use Tobacco Use Status *Q: Current Every Day Tobacco User Years of Tobacco use: 4 Packs/Tins Daily: 1 - Caffeine Use Caffeine Use: Reports: Coffee, Energy Drinks, Soda - Alcohol Use Alcohol Use History: Yes Alcohol Use Frequency: Socially (occasionally to excess) - Recreational Drug Use Recreational Drug Use: Yes Drug Use in Last 12 Months: Yes Recreational Drug Type: Reports: Cocaine (last snorted Jul 2019), Ecstasy (took once in Jun 2019), LSD (Acid) (last took 2016), Marijuana/Hashish (smokes daily) - Living Situation & Occupation Living situation: Reports: Single, Alone 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 ED EXAM, BEHAVIORAL HEALTH - Physical Exam Exam: See Below Exam Limited By: No Limitations General Appearance: Alert, WD/WN, Anxious Eye Exam: Bilateral Eye: EOMI, Normal Inspection Ears: Normal External Exam, Hearing Grossly Normal Nose: Normal Inspection Throat/Mouth: Normal Inspection, Normal Lips, Normal Voice, No Airway Compromise Head: Atraumatic, Normocephalic Neck: Normal Inspection, Full Range of Motion Respiratory/Chest: No Respiratory Distress, Lungs Clear, Normal Breath Sounds, No Accessory Muscle Use Cardiovascular: Normal Peripheral Pulses, Regular Rate, Rhythm, No Edema, No Gallop, No JVD, No Murmur, No Rub GI/Abdominal: Normal Bowel Sounds, Soft, Non-Tender, No Organomegaly, No Distention, No Abnormal Bruit, No Mass Back Exam: Normal Inspection, Full Range of Motion, NT Extremities: Normal Inspection, Normal Range of Motion, Normal Capillary Refill Neurological: Alert, Normal Cognition, No Motor/Sensory Deficits, Oriented x 3 Psychiatric: Tearful (at times), Agitated (somewhat), Flight of Ideas (although able to be redirected), Pressured Speech (somewhat) Skin Exam: Warm, Dry, Intact, Normal color, No rash COURSE, BEHAVIORAL HEALTH COMP - Course Vital Signs: Last Vital Signs Temp 36.3 C 04/17/20 02:10 Pulse 104 H 04/17/20 02:10 Resp 20 04/17/20 02:10 BP 130/78 04/17/20 02:10 Pulse Ox 97 04/17/20 02:10 Orders, Labs, Meds: Active Orders 24 hr Category Date Time Status Sodium Chloride 0.9% [Normal Saline] 1,000 ml Med 04/17/20 02:45 Active IV ASDIRECTED Medication Orders Sodium Chloride (Normal Saline) 1,000 mls @ 250 mls/hr IV ASDIRECTED DENISSE Last Admin: 04/17/20 02:53 Dose: 250 mls/hr Documented by: LIV Medications Generic Name Dose Route Start Last Admin Trade Name Freq PRN Reason Stop Dose Admin Sodium Chloride 1,000 mls @ 250 mls/hr 04/17/20 02:45 04/17/20 02:53 Normal Saline IV 250 mls/hr ASDIRECTED EDNISSE Administration Discontinued Medications Generic Name Dose Route Start Last Admin Trade Name Freq PRN Reason Stop Dose Admin Ketorolac Tromethamine 30 mg 04/17/20 02:43 04/17/20 02:53 Toradol IVPUSH 04/17/20 02:44 30 mg ONETIME STA Administration Lorazepam 1 mg 04/17/20 02:43 04/17/20 02:54 Ativan IVPUSH 04/17/20 02:44 1 mg ONETIME STA Administration Medical Clearance: 04/17/20 02:44 The patient is behaving somewhat manic and is complaining of feeling anxious and unable to focus. She is somewhat tearful. She states that she has been experiencing these symptoms since 2016, although has been off her medications since only May 2019. She is aware that the emergency department cannot prescribe psychiatric medications, and she also is aware that she does not need to be emergently psychiatrically hospitalized, since she is neither suicidal nor homicidal. She is willing to return to Dr. Sahu, but is unhappy about the $800 bill that she was given the last time she was there. She states that she is not even comfortable being here in the ED, knowing that she will get a bill from here, as well, but states that she was hoping that there was something that we can do for her tonight. For tonight's purposes, she will be given an IV with some IV fluid, some IV Ativan to calm her nerves, and IV Toradol to treat her headache. The plan will be to have her stay here and try to get some rest until about 6:30 this morning. 04/17/20 06:40 The patient has been sleeping uneventfully. Catalina KENYON will either have our executive secretary social welfare contact the patient on Monday, or give the patient our executive secretary social welfare phone number. From there, the patient can see if she qualifies for Medicaid or some other service that would help her financially with respect to seeing Dr. Sahu and getting restarted on her psychiatric medications. Departure - Departure Time of Disposition: 06:42 Disposition: Home, Self-Care 01 Condition: Good Clinical Impression: Anxiety - Discharge Information *PRESCRIPTION DRUG MONITORING PROGRAM REVIEWED*: Not Applicable *COPY OF PRESCRIPTION DRUG MONITORING REPORT IN PATIENT ANA ROSA: Not Applicable Referrals: Mary Sahu MD [Ordering Only Provider] - Forms: ED Department Discharge Additional Instructions: You were seen in the emergency room for long-term feelings of anxiety and difficulty focusing in the setting of being off of your psychiatric medications since May, along with having a bad headache. You were treated with IV fluid, an IV pain medicine, and an IV sedative in the ER. As you are already aware, the ER cannot prescribe psychiatric medications. You need to follow-up with the Psychiatrist Dr. Sahu at [facility]. In order to help you financially, you are to contact executive secretary social welfare on 04/20/2020, to see what sort of services you qualify for. If any other problems, please do not hesitate to return to the ER. Sepsis Event Note (ED) - Evaluation Sepsis Screening Result: No Definite Risk - Focused Exam Vital Signs: Vital Signs Temp Pulse Resp BP Pulse Ox 04/17/20 02:10 36.3 C 104 H 20 130/78 97 - My Orders Last 24 Hours: My Active Orders 04/17/20 02:45 Sodium Chloride 0.9% [Normal Saline] 1,000 ml IV ASDIRECTED - Assessment/Plan Last 24 Hours: My Active Orders 04/17/20 02:45 Sodium Chloride 0.9% [Normal Saline] 1,000 ml IV ASDIRECTED
== END 2020-04-17 07:00 | disposition home or self-care (01) ==
LOC: JD.ED 01:59
DX: F41.9 Anxiety disorder, unspecified (principal); F17.210 Nicotine dependence, cigarettes, uncomplicated; Z88.8 Allergy status to other drugs, medicaments and biological substances; Z88.4 Allergy status to anesthetic agent
CPT/HCPCS: 96374; 96375; 99283; J1885; J2060; J7030; 99284

== ENCOUNTER 2021-02-17 15:14 | Emergency (ER) | payer MEDICAID ==
[2021-02-17 15:48] VITALS: BP 106/68; PULSE 79
--- NOTE | 2021-02-17 19:11 | EDM.PDOC ---
<Tremayne Samayoa - Last Filed: 02/17/21 20:03> ED HPI GENERAL MEDICAL PROBLEM - General Chief Complaint: Respiratory Problem Stated Complaint: CHEST PAIN Time Seen by Provider: 02/17/21 19:10 - Related Data Allergies Allergy/AdvReac Type Severity Reaction Status Date / Time promethazine HCl Allergy Anaphylactic Verified 02/17/21 15:48 [From Phenergan] Shock lidocaine AdvReac Hallucinati Verified 02/17/21 15:48 ons Home Meds: Home Meds Magnesium 250 mg PO DAILY 02/17/21 [History] Multivitamin [Multivitamins] 1 tab PO DAILY 02/17/21 [History] Naproxen [Naprosyn] 500 mg PO BID #30 tablet 02/17/21 [Rx] #1 Interpretation EKG Date: 02/17/21 Time: 15:58 Rhythm: NSR Rate (Beats/Min): 75 [place]: Normal P-Wave: Present QRS: Other (Early R wave transition consider right ventricular particular septal hypertrophy pattern.) ST-T: Other (Nonspecific T wave inversion in aVL. Diffuse early repolarization pattern) QT: Normal EKG Interpretation Comments: Abnormal ECG Departure - Departure Disposition: Home, Self-Care 01 Clinical Impression: Chest wall muscle strain - Discharge Information Prescriptions: Naproxen [Naprosyn] 500 mg PO BID #30 tablet Referrals: PCP,None [Primary Care Provider] - Forms: ED Department Discharge Additional Instructions: With meReturn to the emergency room with any questions problems or worsening symptoms. You have been started on Naprosyn take this 1 twice daily for 2 weeks. If you are still having problems after this follow-up with your regular healthcare provider, or the hospital clinic here their phone number is [phone] <Reggie Amador - Last Filed: 02/17/21 23:08> ED HPI GENERAL MEDICAL PROBLEM - History of Present Illness INITIAL COMMENTS - FREE TEXT/NARRATIVE: 20-year-old female presents the emergency room with chest pain. Has been going on for several months now. She was seen at the walk-in clinic nonsteroidal medications do not seem to help. Patient has not had any Covid related symptoms other than some chest wall discomfort. It is aggravated by deep breathing seems to be in the left anterior upper chest. She has not had any breathing difficulties or shortness of breath no fevers. Otherwise has been feeling pretty well. Physical activity as well as deep breathing does make this worse. Patient is not aware of any current ongoing medical problems. Chest Pain Score (Numeric/FACES): 6 Past Medical History - Past Health History Medical/Surgical History: Denies Medical/Surgical History HEENT History: Reports: Impaired Vision Cardiovascular History: Reports: Syncope, Other (See Below) Other Cardiovascular History: Vaso-vagal syncope Respiratory History: Reports: Asthma GOLD ASSAYER History: Reports: Spontaneous Other GOLD ASSAYER History: Miscarriage Neurological History: Reports: Concussion Psychiatric History: Reports: Anxiety, Depression, Eating Disorders, Psych Hospitalization(s), Suicide Attempt, Other (See Below) Other Psychiatric History: overdose - Past Surgical History Cardiovascular Surgical History: Reports: None Female Surgical History: Reports: Other (See Below) Other Female Surgeries/Procedures: implant for control Musculoskeletal Surgical History: Reports: Other (See Below) Other Musculoskeletal Surgeries/Procedures:: Foot surgery Social & Family History - Family History Family Medical History: Unobtainable : Reports: Diabetic Nephropathy Psychiatric: Reports: Depression - Tobacco Use Years of Tobacco use: 3 Packs/Tins Daily: 1 Used Tobacco, but Quit: No - Caffeine Use Caffeine Use: Reports: Coffee - Recreational Drug Use Recreational Drug Use: Yes Recreational Drug Type: Reports: Marijuana/Hashish Recreational Drug Use Frequency: Daily - Living Situation & Occupation Living situation: Reports: Single, Alone Occupation: Other (Performs online) ED ROS GENERAL - Review of Systems Review Of Systems: See Below Constitutional: Reports: No Symptoms HEENT: Reports: No Symptoms Respiratory: Reports: Cough Cardiovascular: Reports: Chest Pain. Denies: Blood Pressure Problem, Dyspnea on Exertion, Edema, Lightheadedness Endocrine: Reports: No Symptoms GI/Abdominal: Reports: No Symptoms : Reports: No Symptoms Musculoskeletal: Reports: No Symptoms Skin: Reports: No Symptoms Neurological: Reports: No Symptoms ED EXAM, GENERAL - Physical Exam Exam: See Below Exam Limited By: No Limitations General Appearance: Alert, No Apparent Distress Eye Exam: Bilateral Eye: Normal Inspection Head: Atraumatic, Normocephalic Neck: Normal Inspection, Supple, Non-Tender, Full Range of Motion Respiratory/Chest: No Respiratory Distress, Lungs Clear, Normal Breath Sounds, No Accessory Muscle Use, Chest Non-Tender Cardiovascular: Normal Peripheral Pulses, Regular Rate, Rhythm, No Edema GI/Abdominal: Normal Bowel Sounds, Soft, Non-Tender Extremities: Normal Inspection, No Pedal Edema Neurological: Alert, Oriented, Normal Cognition Course - Vital Signs Last Recorded V/S: Last Vital Signs Temp 36.9 C 02/17/21 15:43 Pulse 79 02/17/21 15:43 Resp 16 02/17/21 15:43 BP 106/68 02/17/21 15:43 Pulse Ox 98 02/17/21 15:43 - Orders/Labs/Meds Orders: Active Orders 24 hr Category Date Time Status EKG Documentation Completion [RC] STAT Care 02/17/21 19:31 Active Chest 2V [CR] Stat Exams 02/17/21 19:29 Taken Labs: Laboratory Tests 02/17/21 02/17/21 02/17/21 Range/Units 19:46 19:46 19:46 WBC 7.18 (3.98-10.04) K/mm3 RBC 4.99 (3.98-5.22) M/mm3 Hgb 15.0 D (11.2-15.7) gm/dl Hct 44.9 (34.1-44.9) % MCV 90.0 D (79.4-94.8) fl MCH 30.1 (25.6-32.2) pg MCHC 33.4 (32.2-35.5) g/dl RDW Std Deviation 41.4 (36.4-46.3) fL Plt Count 326 (182-369) K/mm3 MPV 9.0 L (9.4-12.3) fl Neut % (Auto) 53.1 (34.0-71.1) % Lymph % (Auto) 35.1 (19.3-51.7) % [place] % (Auto) 8.1 (4.7-12.5) % Eos % (Auto) 2.8 (0.7-5.8) Baso % (Auto) 0.8 (0.1-1.2) % Neut # (Auto) 3.81 (1.56-6.13) K/mm3 Lymph # (Auto) 2.52 (1.18-3.74) K/mm3 [place] # (Auto) 0.58 H (0.24-0.36) K/mm3 Eos # (Auto) 0.20 (0.04-0.36) K/mm3 Baso # (Auto) 0.06 (0.01-0.08) K/mm3 D-Dimer, Quantitative < 0.19 L (0.19-0.50) mg/L Sodium 141 (136-145) mEq/L Potassium 3.6 (3.5-5.1) mEq/L Chloride 103 (98-107) mEq/L Carbon Dioxide 30 (21-32) mEq/L Anion Gap 11.6 (5-15) BUN 6 L (7-18) mg/dL Creatinine 0.7 (0.55-1.02) mg/dL Est Cr Clr Drug Dosing 119.01 mL/min Estimated GFR (MDRD) > 60 (>60) mL/min BUN/Creatinine Ratio 8.6 L (14-18) Glucose 90 (70-99) mg/dL Calcium 9.1 (8.5-10.1) mg/dL Total Bilirubin 0.8 (0.2-1.0) mg/dL AST 12 L (15-37) U/L ALT 17 (14-59) U/L Alkaline Phosphatase 38 L (46-116) U/L Troponin I (0.00-0.056) ng/mL C-Reactive Protein <0.2 (<1.0) mg/dL Total Protein 7.6 (6.4-8.2) g/dl Albumin 4.2 (3.4-5.0) g/dl Globulin 3.4 gm/dL Albumin/Globulin Ratio 1.2 (1-2) 02/17/21 Range/Units 19:46 WBC (3.98-10.04) K/mm3 RBC (3.98-5.22) M/mm3 Hgb (11.2-15.7) gm/dl Hct (34.1-44.9) % MCV (79.4-94.8) fl MCH (25.6-32.2) pg MCHC (32.2-35.5) g/dl RDW Std Deviation (36.4-46.3) fL Plt Count (182-369) K/mm3 MPV (9.4-12.3) fl Neut % (Auto) (34.0-71.1) % Lymph % (Auto) (19.3-51.7) % [place] % (Auto) (4.7-12.5) % Eos % (Auto) (0.7-5.8) Baso % (Auto) (0.1-1.2) % Neut # (Auto) (1.56-6.13) K/mm3 Lymph # (Auto) (1.18-3.74) K/mm3 [place] # (Auto) (0.24-0.36) K/mm3 Eos # (Auto) (0.04-0.36) K/mm3 Baso # (Auto) (0.01-0.08) K/mm3 D-Dimer, Quantitative (0.19-0.50) mg/L Sodium (136-145) mEq/L Potassium (3.5-5.1) mEq/L Chloride (98-107) mEq/L Carbon Dioxide (21-32) mEq/L Anion Gap (5-15) BUN (7-18) mg/dL Creatinine (0.55-1.02) mg/dL Est Cr Clr Drug Dosing mL/min Estimated GFR (MDRD) (>60) mL/min BUN/Creatinine Ratio (14-18) Glucose (70-99) mg/dL Calcium (8.5-10.1) mg/dL Total Bilirubin (0.2-1.0) mg/dL AST (15-37) U/L ALT (14-59) U/L Alkaline Phosphatase (46-116) U/L Troponin I < 0.017 (0.00-0.056) ng/mL C-Reactive Protein (<1.0) mg/dL Total Protein (6.4-8.2) g/dl Albumin (3.4-5.0) g/dl Globulin gm/dL Albumin/Globulin Ratio (1-2) Meds: Medications Discontinued Medications Generic Name Dose Route Start Last Admin Trade Name Freq PRN Reason Stop Dose Admin Sucralfate 1 gm 02/17/21 19:33 02/17/21 19:45 Sucralfate Suspension 1 Gm/10 Ml Cup PO 02/17/21 19:34 1 gm ONETIME ONE Administration - Re-Assessments/Exams Free Text/Narrative Re-Assessment/Exam: 02/17/21 23:02 Patient's work-up is unremarkable at this point chest x-ray is unrevealing EKG is nondiagnostic lab work is not suggestive. Because of this is somewhat concerning to sounds muscle skeletal. She has been on meloxicam and a muscle relaxant while back I will put her on some Naprosyn now and see how she does with this. Departure - Departure Time of Disposition: 23:03 Sepsis Event Note (ED) - Evaluation Sepsis Screening Result: No Definite Risk - Focused Exam Vital Signs: Vital Signs Temp Pulse Resp BP Pulse Ox 02/17/21 15:43 36.9 C 79 16 106/68 98 - My Orders Last 24 Hours: My Active Orders 02/17/21 19:29 Chest 2V [CR] Stat 02/17/21 19:31 EKG Documentation Completion [RC] STAT - Assessment/Plan Last 24 Hours: My Active Orders 02/17/21 19:29 Chest 2V [CR] Stat 02/17/21 19:31 EKG Documentation Completion [RC] STAT
[2021-02-17] MEDS ORDERED: Sucralfate Suspension 1 GM/10 ML Cup PO ONE (19:33)
--- NOTE | 2021-02-18 06:39 | CR ---
Chest: PA and lateral views of the chest were obtained. Comparison: No prior chest imaging is available. Heart size and mediastinum are within normal limits. Lungs are clear with no acute parenchymal change. Bony structures show minimal scoliosis within the spine. Impression: 1. Nothing acute is seen on 2-view chest x-ray. Diagnostic code #2
== END 2021-02-17 23:15 | disposition home or self-care (01) ==
LOC: JD.ED 15:14
DX: S29.011A Strain of muscle and tendon of front wall of thorax, initial encounter (principal); Z88.4 Allergy status to anesthetic agent; Z88.8 Allergy status to other drugs, medicaments and biological substances; Z72.0 Tobacco use; X58.XXXA Exposure to other specified factors, initial encounter
CPT/HCPCS: 36415; 71046; 80053; 84484; 85025; 85379; 86140; 93005; 99285; A9270

== ENCOUNTER 2021-11-17 07:05 | Inpatient (IN) | payer MEDICAID ==
[~2021-11-17 07:05] MED LIST: Bupivacaine 0.25% 10 ML SDV ONE; Lidocaine 1% 10 ML MDV ONE
[2021-11-17] MEDS ORDERED: Sodium Chloride 0.9% 10 ML Syringe FLUSH PRN (07:18)
[2021-11-17] MEDS ORDERED: Ondansetron 4 MG/2 ML SDV IVPUSH PRN (07:18)
[2021-11-17] MEDS ORDERED: Nalbuphine HCl 10 MG/ 1ML Amp IVPUSH PRN (07:18)
[2021-11-17] MEDS ORDERED: Ampicillin 2 GM in Sodium Chloride 0.9% 100 ML IV ONE ×2 (08:00→12:00)
[2021-11-17] MEDS: Misoprostol 25 MCG (1/4 of 100 MCG) Tab VAG SCH ×2 (08:20→12:58)
[2021-11-17] MEDS: Lactated Ringers 1,000 ML IV SCH ×3 (12:56→21:26)
[2021-11-17] MEDS: Oxytocin/Lactated Ringers 10 UNIT/1,000 ML BAG IV SCH (12:57)
[2021-11-17] MEDS ORDERED: Oxytocin/Lactated Ringers 10 UNIT/1,000 ML BAG IV SCH (14:00)
[2021-11-17] MEDS ORDERED: diphenhydrAMINE 50 MG/ML SDV IVPUSH PRN (16:27)
[2021-11-17] MEDS ORDERED: ePHEDrine 50 MG/ML SDV IVPUSH PRN (16:27)
[2021-11-17] MEDS ORDERED: Bupivacaine/fentaNYL/NS 100 ML Bag EPIDUR PRN (16:27)
[2021-11-17] MEDS ORDERED: fentaNYL 100 MCG/2 ML SDV EPIDUR PRN (16:27)
[2021-11-17] MEDS: Ampicillin 1 GM in Sodium Chloride 0.9% 100 ML IV SCH ×2 (16:58→21:15)
[2021-11-17] MEDS: Sodium Chloride 0.9% 10 ML Syringe FLUSH SCH ×2 (21:22→21:23)
[2021-11-18] MEDS: Ampicillin 1 GM in Sodium Chloride 0.9% 100 ML IV SCH (01:09)
[2021-11-18] MEDS: Oxytocin/Lactated Ringers 10 UNIT/1,000 ML BAG IV SCH (01:55)
[2021-11-18] MEDS ORDERED: Docusate Sodium 100 MG Cap PO PRN (02:58)
[2021-11-18] MEDS ORDERED: Benzocaine/Menthol 20%-0.5% Spray 78 GM Cannister TOP PRN (02:58)
[2021-11-18] MEDS ORDERED: Acetaminophen 325 MG Tab PO PRN (02:58)
[2021-11-18] MEDS ORDERED: Witch Hazel Medicated Pads 40/Jar TOP PRN (02:58)
[2021-11-18] MEDS: Ibuprofen 600 MG Tab PO PRN ×2 (05:48→12:11)
[2021-11-19 09:27] VITALS: BP 112/91; PULSE 82
== END 2021-11-19 11:20 | disposition home or self-care (01) | DRG 807 ==
LOC: OBSVTOIN 07:05 → JD.OB 07:05
PROVIDERS: ADMIT Obstetrics & Gynecology; ATTEND Obstetrics & Gynecology
PROC: 10E0XZZ Delivery of Products of Conception, External Approach (ICD-10-PCS; principal; 2021-11-18)
PROC: 0KQM0ZZ Repair Perineum Muscle, Open Approach (ICD-10-PCS; 2021-11-18)
PROC: 10907ZC Drainage of Amniotic Fluid, Therapeutic from Products of Conception, Via Natural or Artificial Opening (ICD-10-PCS; 2021-11-18)
PROC: 3E0P7VZ Introduction of Hormone into Female Reproductive, Via Natural or Artificial Opening (ICD-10-PCS; 2021-11-18)
PROC: 3E0R3BZ Introduction of Anesthetic Agent into Spinal Canal, Percutaneous Approach (ICD-10-PCS; 2021-11-18)
PROC: 4A1HXCZ Monitoring of Products of Conception, Cardiac Rate, External Approach (ICD-10-PCS; 2021-11-18)
DX: O99.824 Streptococcus B carrier state complicating childbirth (principal); Z37.0 Single live birth; Z3A.40 40 weeks gestation of pregnancy; Z88.8 Allergy status to other drugs, medicaments and biological substances; O70.1 Second degree perineal laceration during delivery; O99.334 Smoking (tobacco) complicating childbirth; F17.210 Nicotine dependence, cigarettes, uncomplicated; O99.214 Obesity complicating childbirth
CPT/HCPCS: 01967; 36415; 51702; 59025; 59409; 85027; 86592; 86850; 86900; 86901; A9270-GY; J0290; J2590; J3010; J3490; J7120

== ENCOUNTER 2022-06-16 12:43 | Emergency (ER) | payer MEDICAID ==
[2022-06-16] MEDS ORDERED: HYDROmorphone 1 MG/ML Syringe IM ONE (13:13)
[2022-06-16] MEDS ORDERED: Ondansetron 4 MG Tab.DIS PO ONE (13:13)
[2022-06-16 15:18] VITALS: BP 121/61; PULSE 74
== END 2022-06-16 15:15 | disposition home or self-care (01) ==
LOC: JD.ED 12:43
DX: K04.7 Periapical abscess without sinus (principal); E66.9 Obesity, unspecified; Z68.26 Body mass index [BMI] 26.0-26.9, adult; Z88.8 Allergy status to other drugs, medicaments and biological substances
CPT/HCPCS: 96372; 99282; A9270; J1170; 99283

== ENCOUNTER 2022-06-17 07:25 | Emergency (ER) | payer MEDICAID ==
[2022-06-17] MEDS ORDERED: Sodium Chloride 0.9% 10 ML Syringe FLUSH PRN (08:09)
[2022-06-17] MEDS ORDERED: Sodium Chloride 0.9% 1,000 ML IV ONE (08:10)
[2022-06-17] MEDS ORDERED: Ondansetron 4 MG/2 ML SDV IVPUSH ONE (08:10)
[2022-06-17] MEDS ORDERED: Sodium Chloride 0.9% 10 ML Syringe FLUSH ONE (09:19)
[2022-06-17] MEDS ORDERED: Iopamidol 612 MG/ML 100 ML Bottle IVPUSH ONE (09:19)
[2022-06-17] MEDS: Sodium Chloride 0.9% 100 ML IV SCH ×2 (09:35→10:16)
[2022-06-17] MEDS ORDERED: Clindamycin Phosphate in D5W 900 MG in Premix Bag 1 BAG IV ONE ×2 (10:47)
[2022-06-17] MEDS ORDERED: Ketorolac 15 MG/ML SDV IVPUSH ONE (11:32)
[2022-06-17 14:06] VITALS: BP 120/73; PULSE 63
== END 2022-06-17 14:08 | disposition home or self-care (01) ==
LOC: JD.ED 07:25
DX: K04.7 Periapical abscess without sinus (principal); J45.909 Unspecified asthma, uncomplicated; E66.9 Obesity, unspecified; Z68.26 Body mass index [BMI] 26.0-26.9, adult; Z88.8 Allergy status to other drugs, medicaments and biological substances; Z79.899 Other long term (current) drug therapy
CPT/HCPCS: 36415; 41800; 70487; 80053; 84703; 85025; 86140; 96361; 96365; 96366; 96375; 99283; J1885; J3490; J7030; Q9967; 10060

== ENCOUNTER 2024-05-18 02:14 | Emergency (ER) | payer MEDICAID ==
[2024-05-18] MEDS: Penicillin V Potassium 500 MG Tab PO ONE (03:04)
[2024-05-18 03:12] VITALS: BP 105/58; PULSE 73
== END 2024-05-18 03:05 | disposition home or self-care (01) ==
LOC: JD.ED 02:14
DX: O99.612 Diseases of the digestive system complicating pregnancy, second trimester (principal); K02.9 Dental caries, unspecified; E66.9 Obesity, unspecified; Z88.8 Allergy status to other drugs, medicaments and biological substances; Z3A.19 19 weeks gestation of pregnancy
CPT/HCPCS: 99282; A9270

== ENCOUNTER 2024-10-09 07:27 | Inpatient (IN) | payer MEDICAID ==
[2024-10-09] MEDS ORDERED: Acetaminophen 325 MG Tab PO PRN (07:28)
[2024-10-09] MEDS ORDERED: Nalbuphine 10 MG/1 ML Vial IVPUSH PRN (07:28)
[2024-10-09] MEDS ORDERED: Sodium Chloride 0.9% 10 ML Syringe FLUSH PRN (07:28)
[2024-10-09] MEDS ORDERED: Lidocaine 1% 50 ML MDV INJECT PRN (07:28)
[2024-10-09] MEDS ORDERED: Oxytocin/0.9 % Sodium Chloride 30 UNIT/500 ML BAG IV SCH (07:30)
[2024-10-09] MEDS: Misoprostol 25 MCG (1/4 of 100 MCG) Tab VAG PRN (08:07)
[2024-10-09 08:10] LABS: BASOPHILS ABSOLUTE AUTO 0.1 K/mm3 (0.0-0.2); BASOPHILS PERCENT AUTO 0.6 % (0.0-1.0); EOSINOPHILS ABSOLUTE AUTO 0.3 K/mm3 (0.0-0.4); EOSINOPHILS PERCENT AUTO 2.3 % (0.0-6.0); HEMOGLOBIN 12.3 gm/dl (12.0-16.0); IMMATURE GRAN ABSOLUTE AUTO 0.46 K/mm3 (0.00-0.05); IMMATURE GRAN PERCENT AUTO 3.7 % (0.0-0.4); LYMPHOCYTES PERCENT AUTO 16.5 % (24.0-44.0); MEAN CORPUSCULAR HEMOGLOBIN 28.7 pg (28.0-32.0); MEAN CORPUSCULAR HGB CONC 33.2 g/dl (32.0-36.0); MEAN CORPUSCULAR VOLUME 86.4 fl (83.0-99.0); MEAN PLATELET VOLUME 10.5 fl (9.4-12.3); MONOCYTES ABSOLUTE AUTO 1.1 K/mm3 (0.0-0.8); MONOCYTES PERCENT AUTO 8.7 % (0.0-8.0); NEUTROPHILS ABSOLUTE AUTO 8.4 K/mm3 (1.8-7.7); NEUTROPHILS PERCENT AUTO 68.2 % (41.0-71.0); PLATELET COUNT,PLT 179 K/mm3 (150-400); RED BLOOD CELL COUNT 4.28 M/mm3 (4.10-5.30); WHITE BLOOD CELL COUNT,WBC 12.34 K/mm3 (3.9-11.3)
[2024-10-09] MEDS: Sodium Chloride 0.9% 10 ML Syringe FLUSH SCH (11:10)
[2024-10-09] MEDS: Lactated Ringers 1,000 ML IV SCH (12:16)
[2024-10-09] MEDS: Oxytocin/0.9 % Sodium Chloride 30 UNIT/500 ML BAG IV SCH (12:16)
[2024-10-09] MEDS: Misoprostol 25 MCG (1/4 of 100 MCG) Tab VAG ONE (14:00)
[2024-10-09] MEDS ORDERED: diphenhydrAMINE 50 MG/ML SDV IVPUSH PRN (18:27)
[2024-10-09] MEDS ORDERED: ePHEDrine 50 MG/ML SDV IVPUSH PRN (18:27)
[2024-10-09] MEDS: fentaNYL 100 MCG/2 ML SDV EPIDUR PRN (18:31)
[2024-10-09] MEDS: Bupivacaine/fentaNYL/NS 100 ML Bag EPIDUR PRN (18:39)
[2024-10-09] MEDS: fentaNYL 100 MCG/2 ML SDV ONE (20:03)
[2024-10-09] MEDS: Ondansetron 4 MG/2 ML SDV IVPUSH PRN (23:21)
[2024-10-10] MEDS: Metoclopramide 10 MG/2 ML SDV IVPUSH ONE (01:09)
[2024-10-10] MEDS ORDERED: ceFAZolin 2 GM Vial IVPUSH ONE (01:50)
[2024-10-10] MEDS ORDERED: ceFAZolin 2 GM in Sodium Chloride 0.9% 100 ML IV ONE (02:41)
[2024-10-10] MEDS: ceFAZolin 2 GM in Sodium Chloride 0.9% 100 ML IV ONE (03:08)
[2024-10-10] MEDS ORDERED: Docusate Sodium 100 MG Cap PO PRN (03:12)
[2024-10-10] MEDS ORDERED: Witch Hazel Medicated Pads 40/Jar TOP PRN (03:12)
[2024-10-10] MEDS ORDERED: Acetaminophen 325 MG Tab PO PRN (03:12)
[2024-10-10] MEDS: Ibuprofen 600 MG Tab PO SCH (07:51)
[2024-10-11 09:37] VITALS: BP 128/84; PULSE 84
[2024-10-11] MEDS: Benzocaine/Menthol 20%-0.5% Spray 78 GM Cannister TOP PRN (10:08)
== END 2024-10-11 12:10 | disposition home or self-care (01) | DRG 807 ==
LOC: JD.OBCHECK 07:27 → JD.OB 07:27 → JD.OBCHECK 07:28 → JD.OB 07:29 → OBSVTOIN 10-10 01:18 → JD.OB 10-10 01:19
PROVIDERS: ADMIT Obstetrics & Gynecology; ATTEND Obstetrics & Gynecology
PROC: 10E0XZZ Delivery of Products of Conception, External Approach (ICD-10-PCS; principal; 2024-10-10)
PROC: 10907ZC Drainage of Amniotic Fluid, Therapeutic from Products of Conception, Via Natural or Artificial Opening (ICD-10-PCS; principal; 2024-10-10)
PROC: 3E033VJ Introduction of Other Hormone into Peripheral Vein, Percutaneous Approach (ICD-10-PCS; principal; 2024-10-10)
PROC: 3E0R3BZ Introduction of Anesthetic Agent into Spinal Canal, Percutaneous Approach (ICD-10-PCS; 2024-10-10)
DX: O99.214 Obesity complicating childbirth (principal); Z37.0 Single live birth; Z3A.39 39 weeks gestation of pregnancy; Z88.8 Allergy status to other drugs, medicaments and biological substances; Z79.899 Other long term (current) drug therapy; Z98.890 Other specified postprocedural states; Z87.891 Personal history of nicotine dependence
CPT/HCPCS: 01967; 36415; 51702; 59025; 59409; 85025; 86592; 86850; 86900; 86901; A9270-GY; C1726; J0690; J2405; J2765; J3010; J3490; J7120; J7999